=== PATIENT | female | born 1945 | race Caucasian/White ===

== ENCOUNTER 2022-01-16 11:31 | Inpatient (IN) ==
[~2022-01-16 11:31] MED LIST: tiZANidine 4 MG TABLET PO SCH
[2022-01-16] MEDS ORDERED: *HR* OxyCODONE Immed Rel 5 MG TABLET PO ONE (11:45)
[2022-01-16] MEDS ORDERED: Famotidine 20 MG TABLET PO ONE (11:45)
[2022-01-16] MEDS ORDERED: CeFAZolin Syr 2,000MG/20 ML 2,000 MG/20 ML SYRINGE IVPB ONE (12:07)
[2022-01-16] MEDS ORDERED: Ringers Solution, Lactated 1,000 ML IVC SCH ×2 (12:15→17:00)
[2022-01-16] MEDS ORDERED: *HR* Propofol 200 MG/20 ML VIAL IVP ONE (12:29)
[2022-01-16] MEDS ORDERED: Lidocaine -MPF 2% 5 ML VIAL ONE (12:29)
[2022-01-16] MEDS ORDERED: *HR* Rocuronium Bromide 50 MG/5 ML VIAL ONE (12:29)
[2022-01-16] MEDS ORDERED: *HR* OxyCODONE Immed Rel 5 MG TABLET PO PRN ×2 (13:17→16:50)
[2022-01-16] MEDS ORDERED: *HR* Labetalol 20 MG/4 ML SYRINGE IVP PRN (13:17)
[2022-01-16] MEDS ORDERED: Metoclopramide 10 MG/2 ML VIAL IVP PRN (13:17)
[2022-01-16] MEDS ORDERED: Ondansetron 4 MG/2 ML VIAL IVP PRN ×3 (13:17→18:26)
[2022-01-16] MEDS ORDERED: *HR* HYDROmorphone PF 0.5 MG/0.5 ML SYRINGE IVP PRN (13:17)
[2022-01-16] MEDS ORDERED: Vancomycin 1,000 MG VIAL ONE ×2 (13:26→14:44)
[2022-01-16] MEDS ORDERED: *HR* FentaNYL (PF) 100 MCG/2 ML VIAL ONE (13:34)
[2022-01-16] MEDS ORDERED: Ondansetron 4 MG/2 ML VIAL ONE (13:34)
[2022-01-16] MEDS ORDERED: Polymyxin B Sulfate 500,000 UNIT, Sodium Chloride IRRigation 1,000 ML IR ONE (13:45)
[2022-01-16] MEDS ORDERED: Sugammadex Sodium 200 MG/2 ML VIAL IV ONE (15:53)
[2022-01-16] MEDS ORDERED: *HR* HYDROMORPHONE 2 MG/ML VIAL ONE (16:11)
[2022-01-16] MEDS ORDERED: Naloxone 0.4 MG/ML INJ IVP PRN ×2 (16:50→18:26)
[2022-01-16] MEDS ORDERED: Acetaminophen 325 MG TABLET PO PRN ×2 (16:50→18:26)
[2022-01-16] MEDS ORDERED: *HR* HYDROcodone/Acet 5/325 mg TABLET PO PRN ×2 (16:50→18:26)
[2022-01-16] MEDS ORDERED: Ondansetron 4 MG/2 ML VIAL IVP ONE (17:43)
[2022-01-16] MEDS ORDERED: Denosumab 60 MG/ML SYRINGE SQ SCH (18:26)
[2022-01-16] MEDS: Ringers Solution, Lactated 1,000 ML IVC SCH (18:27)
[2022-01-16] MEDS: Gabapentin 300 MG CAPSULE PO SCH (20:27)
[2022-01-17] MEDS ORDERED: CeFAZolin 2 GM/120 ML BAG IVPB SCH ×2
[2022-01-17] MEDS: Ringers Solution, Lactated 1,000 ML IVC SCH (04:35)
[2022-01-17] MEDS: Gabapentin 300 MG CAPSULE PO SCH ×3 (04:38→18:58)
[2022-01-17] MEDS: *HR* OxyCODONE Immed Rel 5 MG TABLET PO PRN (06:15)
[2022-01-17] MEDS: gemfibroziL 600 MG TABLET PO SCH (09:15)
[2022-01-17] MEDS: Cholecalciferol (D-3) 1,000 UNIT (25MCG) TABLET PO SCH (09:16)
[2022-01-17] MEDS: Ascorbic Acid 500 MG TABLET PO SCH (09:17)
[2022-01-17] MEDS: Lactobacillus 1 EACH CAP.SPRINK PO SCH (09:17)
[2022-01-18] MEDS: Gabapentin 300 MG CAPSULE PO SCH ×3 (01:59→17:56)
[2022-01-18] MEDS: *HR* OxyCODONE Immed Rel 5 MG TABLET PO PRN ×3 (03:54→21:00)
[2022-01-18] MEDS: Lactobacillus 1 EACH CAP.SPRINK PO SCH (08:24)
[2022-01-18] MEDS: Ascorbic Acid 500 MG TABLET PO SCH (08:24)
[2022-01-18] MEDS: Cholecalciferol (D-3) 1,000 UNIT (25MCG) TABLET PO SCH (08:25)
[2022-01-18] MEDS: gemfibroziL 600 MG TABLET PO SCH (08:25)
[2022-01-19] MEDS: Gabapentin 300 MG CAPSULE PO SCH ×3 (02:38→17:30)
[2022-01-19] MEDS: Ascorbic Acid 500 MG TABLET PO SCH (09:17)
[2022-01-19] MEDS: Lactobacillus 1 EACH CAP.SPRINK PO SCH (09:17)
[2022-01-19] MEDS: Cholecalciferol (D-3) 1,000 UNIT (25MCG) TABLET PO SCH (09:17)
[2022-01-19] MEDS: gemfibroziL 600 MG TABLET PO SCH (09:17)
[2022-01-19] MEDS: *HR* OxyCODONE Immed Rel 5 MG TABLET PO PRN (10:16)
[2022-01-19 23:06] LABS: Bilirubin,Urine Negative (Negative); Blood,Urine Negative (Negative); Clarity,Urine Clear (Clear); Color,Urine Light-Yellow (Yellow); Glucose,Urine (UA) Normal (Normal); Ketones,Urine 40 mg/dL (Negative); Leukocyte Esterase,Urine Negative (Negative); Nitrite,Urine Negative (Negative); PH,Urine 6.5 pH Units (5.0-8.0); Protein,Urine Trace mg/dL (Neg-Trace); Specific Gravity,Urine 1.019 (1.010-1.025); Urobilinogen,Urine Normal (Normal)
[2022-01-20] MEDS: Gabapentin 300 MG CAPSULE PO SCH ×2 (02:14→08:39)
[2022-01-20] MEDS: Ascorbic Acid 500 MG TABLET PO SCH (08:37)
[2022-01-20] MEDS: gemfibroziL 600 MG TABLET PO SCH (08:38)
[2022-01-20] MEDS: Lactobacillus 1 EACH CAP.SPRINK PO SCH (08:39)
[2022-01-20] MEDS: *HR* OxyCODONE Immed Rel 5 MG TABLET PO PRN (08:39)
[2022-01-20] MEDS: Cholecalciferol (D-3) 1,000 UNIT (25MCG) TABLET PO SCH (08:39)
[2022-01-20 10:47] VITALS: BP 156/70; PULSE 93; TEMP 97.9; O2SAT 97
[2022-01-20 14:09] LABS: Influenza A PCR Negative (Negative); Influenza B PCR Negative (Negative); Resp. Syncytial Virus PCR Negative (Negative)
[2022-01-20 15:55] LABS: SARS-CoV-2 by PCR (In House) Negative (Negative)
== END 2022-01-20 17:47 | DRG 517 ==
LOC: SDCAOSI 11:31 → 4WAOSI 18:24
PROVIDERS: ADMIT Orthopaedic Surgery Orthopaedic Surgery of the Spine; ATTEND Orthopaedic Surgery Orthopaedic Surgery of the Spine